=== PATIENT | female | born 1980 | race Caucasian/White ===

== ENCOUNTER 2024-04-19 10:17 | Day surgery (SDC) | payer OTHER ==
[~2024-04-19] VITALS: Ht 160 cm; Wt 91.2 kg
[2024-04-19 10:51] LABS: HCG,QUAL RESULT NEGATIVE (NEGATIVE)
[2024-04-19 12:39] VITALS: O2SAT 100
[2024-04-19] MEDS ORDERED: KETAMINE HCL IN 0.9 % NACL 50 MG/5 ML SYRINGE ONE (14:07)
[2024-04-19] MEDS ORDERED: MIDAZOLAM HCL 2 MG/2 ML VIAL (VERSED) ONE (14:07)
[2024-04-19] MEDS ORDERED: NALOXONE HCL 0.4 MG/ML AMP (NARCAN) IVP PRN (14:45)
[2024-04-19] MEDS ORDERED: KETOROLAC TROMETHAMINE 30 MG VIAL ONE (14:45)
[2024-04-19] MEDS ORDERED: HYDROmorphone 1 MG/ML INJ. CARTRIDGE IVP PRN ×3 (14:45)
[2024-04-19] MEDS ORDERED: ONDANSETRON HCL 4 MG/2 ML VIAL IVP PRN (14:45)
[2024-04-19] MEDS ORDERED: hydrALAZINE HCL 20 MG/ML VIAL IV PRN (14:45)
[2024-04-19 16:01] VITALS: BP_SYST 125; PULSE 70; RESP 16
[2024-04-20] MEDS ORDERED: KETOROLAC TROMETHAMINE 30 MG VIAL ONE (14:47)
[2024-04-25] MEDS ORDERED: MEDR10TA72 PO (21:57)
== END 2024-04-19 16:15 | disposition home or self-care (01) ==
LOC: SMU 10:17 → SDS 10:17
PROVIDERS: ATTEND Obstetrics & Gynecology
DX: D06.9 Carcinoma in situ of cervix, unspecified (principal); N72 Inflammatory disease of cervix uteri
CPT/HCPCS: 87081; 57522; 84703; 88305; 88307; J1885; J3465; J2405; J7120; J2250

== ENCOUNTER 2024-04-26 01:22 | Emergency (ER) | payer MEDICAID ==
[~2024-04-26 01:22] MED LIST: MEDR10TA72 PO
== END 2024-04-26 01:39 | disposition left against medical advice (07) ==
LOC: SED 01:22
DX: R11.10 Vomiting, unspecified (principal); Z53.21 Procedure and treatment not carried out due to patient leaving prior to being seen by health care provider